=== PATIENT | female | born 1975 | race Caucasian/White ===

== ENCOUNTER → 2016-12-28 | Outpatient (CLI) | payer OTHER ==
--- NOTE | 2016-12-28 10:14 | RAD ---
DATE: 12/28/2016 EXAM: DIGITAL DIAGNOSTIC RT HISTORY: 6 month follow-up for asymmetry COMPARISON: 06/12/2016 This study was interpreted with the benefit of Computerized Aided Detection (CAD). FINDINGS: Breast Density: HETERO The breast parenchyma Is heterogeneously dense, which could reduce sensitivity of mammography. Breast parenchyma level C. There are no dominant suspicious masses, suspicious microcalcifications or evidence of architectural distortion. Benign-appearing calcifications identified in the right breast similar to prior exam. IMPRESSION: Benign findings BI-RADS CATEGORY: 2 BENIGN FINDING RECOMMENDED FOLLOW-UP: 6M 6 MONTH FOLLOW-UP: Patient is due for screening mammogram in 6 months. PQRS compliance statement: Patient information was entered into a reminder system with a target due date 06/29/2017 for the next mammogram. Mammography is a sensitive method for finding small breast cancers, but it does not detect them all and is not a substitute for careful clinical examination. A negative mammogram does not negate a clinically suspicious finding and should not result in delay in biopsying a clinically suspicious abnormality. "Our facility is accredited by the [employer] Mammography [employer]."
== END | disposition home or self-care (01) ==
LOC: MAMMO 09:21
PROVIDERS: ATTEND Obstetrics & Gynecology
DX: R92.8 Other abnormal and inconclusive findings on diagnostic imaging of breast (principal)
CPT/HCPCS: G0206; 77065

== ENCOUNTER → 2017-04-09 | Outpatient (CLI) | payer OTHER ==
[2017-04-09 09:57] LABS: % SAT IRON 3 % (15-34); IRON,SERUM 14 ug/dL (50-170)
[2017-04-09 10:08] LABS: FREE T4 0.97 ng/dL (0.76-1.46)
== END | disposition home or self-care (01) ==
LOC: SPEC 09:15
PROVIDERS: ATTEND Obstetrics & Gynecology
DX: L65.9 Nonscarring hair loss, unspecified (principal)
CPT/HCPCS: 36415; 82728; 83540; 83550; 84439; 84443

== ENCOUNTER → 2017-04-22 | Outpatient (CLI) | payer OTHER ==
[2017-04-23 09:11] LABS: NEG OBC FOB NEG; POS OBC FOB POS
== END | disposition home or self-care (01) ==
LOC: SPEC 08:00
PROVIDERS: ATTEND Obstetrics & Gynecology
DX: Z12.11 Encounter for screening for malignant neoplasm of colon (principal); D50.9 Iron deficiency anemia, unspecified
CPT/HCPCS: 82274

== ENCOUNTER → 2017-05-24 | Outpatient (CLI) | payer OTHER ==
[2017-05-24 10:35] LABS: BASO % 1 % (0-3); EOS % 8 % (0-3); HEMATOCRIT 37.7 % (36.0-47.0); HEMOGLOBIN 12.2 g/dL (12.0-15.5); LYMPH # 1.1 x10^3/uL (1.0-4.8); LYMPH % 22 % (24-48); MEAN CORPUSCULAR HEMOGLOBIN 28 pg (25-35); MEAN CORPUSCULAR HGB CONC 32 g/dL (31-37); MEAN CORPUSCULAR VOLUME 87 fL (79-100); MONO % 8 % (0-9); NEUT % 61 % (31-73); PLATELET COUNT 244 x10^3/uL (140-400); RED BLOOD COUNT 4.34 x10^6/uL (3.50-5.40); RED CELL DISTRIBUTION WIDTH 24.5 % (11.5-14.5)
[2017-05-24 10:54] LABS: % SAT IRON 26 % (15-34); IRON,SERUM 70 ug/dL (50-170)
== END | disposition home or self-care (01) ==
LOC: SPEC 10:22
PROVIDERS: ATTEND Obstetrics & Gynecology
DX: D64.9 Anemia, unspecified (principal)
CPT/HCPCS: 36415; 82728; 83540; 83550; 85025

== ENCOUNTER → 2017-06-24 | Outpatient (CLI) | payer OTHER ==
--- NOTE | 2017-06-24 10:19 | RAD ---
DATE: 06/24/2017 EXAM: DIGITAL SCREEN BILAT W/CAD HISTORY: Routine screening COMPARISON: 12/28/2016, 06/12/2016, 05/28/2016 This study was interpreted with the benefit of Computerized Aided Detection (CAD). The breast parenchyma shows scattered fibroglandular densities. Breast parenchyma level B. FINDINGS: There are scattered fibroglandular densities in the breasts in a slightly asymmetric pattern. There are stable densities in the lateral aspect of the left breast as seen on the cc view and in the anterior superior aspect of the right breast as seen on the oblique view. This probably represents a normal variant in the fibroglandular pattern in this patient. No new or enlarging breast densities are seen. Benign type calcifications are present. No suspicious microcalcifications have developed. IMPRESSION: Stable mammograms without evidence of malignancy. BI-RADS CATEGORY: 2 BENIGN FINDING(S) RECOMMENDED FOLLOW-UP: 12M 12 MONTH FOLLOW-UP PQRS compliance statement: Patient information was entered into a reminder system with a target due date for the next mammogram. Mammography is a sensitive method for finding small breast cancers, but it does not detect them all and is not a substitute for careful clinical examination. A negative mammogram does not negate a clinically suspicious finding and should not result in delay in biopsying a clinically suspicious abnormality. "Our facility is accredited by the [employer] Mammography [employer]."
== END | disposition home or self-care (01) ==
LOC: MAMMO 09:19
PROVIDERS: ATTEND Obstetrics & Gynecology
DX: Z12.31 Encounter for screening mammogram for malignant neoplasm of breast (principal)
CPT/HCPCS: G0202; 77067

== ENCOUNTER → 2017-09-28 | Outpatient (CLI) | payer OTHER ==
[2017-09-28 12:44] LABS: ADD MAN DIFF? NO
[2017-09-28 12:52] LABS: BASO # 0.1 x10^3/uL (0.0-0.2); BASO % 1 % (0-3); EOS # 0.5 x10^3/uL (0.0-0.7); EOS % 9 % (0-3); HEMATOCRIT 39.4 % (36.0-47.0); HEMOGLOBIN 13.3 g/dL (12.0-15.5); LYMPH # 1.3 x10^3/uL (1.0-4.8); LYMPH % 23 % (24-48); MEAN CORPUSCULAR HEMOGLOBIN 31 pg (25-35); MEAN CORPUSCULAR HGB CONC 34 g/dL (31-37); MEAN CORPUSCULAR VOLUME 93 fL (79-100); MONO # 0.5 x10^3/uL (0.0-1.1); MONO % 9 % (0-9); NEUT # 3.3 x10^3uL (1.8-7.7); NEUT % 58 % (31-73); PLATELET COUNT 250 x10^3/uL (140-400); RED BLOOD COUNT 4.22 x10^6/uL (3.50-5.40); RED CELL DISTRIBUTION WIDTH 13.1 % (11.5-14.5); WHITE BLOOD COUNT 5.7 x10^3/uL (4.0-11.0)
[2017-09-28 13:03] LABS: % SAT IRON 23 % (15-34); IRON,SERUM 77 ug/dL (50-170)
[2017-09-28 13:14] LABS: THYROID STIM HORMONE (TSH) 0.959 uIU/mL (0.358-3.74)
[2017-09-28 13:14] LABS: FREE T4 0.82 ng/dL (0.76-1.46)
== END | disposition home or self-care (01) ==
LOC: SPEC 09:30
DX: D50.9 Iron deficiency anemia, unspecified (principal)
CPT/HCPCS: 36415; 83540; 83550; 84439; 84443; 85025

== ENCOUNTER → 2018-07-19 | Outpatient (CLI) | payer OTHER ==
--- NOTE | 2018-07-19 16:28 | RAD ---
DATE: 07/19/2018 EXAM: MAMMO NORA SCREENING BILATERAL HISTORY: Routine screening COMPARISON: 06/24/2017, 05/28/2016 This study was interpreted with the benefit of Computerized Aided Detection (CAD). Breast Density: SCATTERED The breast parenchyma shows scattered fibroglandular densities. Breast parenchyma level B. FINDINGS: 2-D and 3-D tomosynthesis imaging was performed in CC and MLO projections. A small density projected over the superior aspect of the right breast on the oblique view is unchanged since 05/28/2016. No new or enlarging breast densities are seen. Benign type calcifications are present. No suspicious microcalcifications have developed. IMPRESSION: Stable mammograms without evidence of malignancy. BI-RADS CATEGORY: 2 BENIGN FINDING(S) RECOMMENDED FOLLOW-UP: 12M 12 MONTH FOLLOW-UP PQRS compliance statement: Patient information was entered into a reminder system with a target due date for the next mammogram. Mammography is a sensitive method for finding small breast cancers, but it does not detect them all and is not a substitute for careful clinical examination. A negative mammogram does not negate a clinically suspicious finding and should not result in delay in biopsying a clinically suspicious abnormality. "Our facility is accredited by the [employer] Mammography Program."
== END | disposition home or self-care (01) ==
LOC: MAMMO 13:58
PROVIDERS: ATTEND Obstetrics & Gynecology
DX: Z12.31 Encounter for screening mammogram for malignant neoplasm of breast (principal)
CPT/HCPCS: 77063; 77067

== ENCOUNTER → 2019-04-05 | Outpatient (CLI) | payer OTHER | END | disposition home or self-care (01) | LOC: SPEC 09:55 | PROVIDERS: ATTEND Obstetrics & Gynecology | DX: Z01.419 Encounter for gynecological examination (general) (routine) without abnormal findings (principal) | CPT/HCPCS: 87623; 88175 ==

== ENCOUNTER → 2019-09-14 | Outpatient (CLI) | payer OTHER ==
--- NOTE | 2019-09-18 17:55 | RAD ---
BILATERAL SCREENING MAMMOGRAM, 3-D History: Routine screening. Comparison: 05/28/2016, 06/24/2017 and 07/19/2018 mammographic exams. Technique: MLO and CC digital tomosynthesis (3D) images obtained. Radiologist reviewed these images on dedicated workstation. Findings: Breast Tissue Density B : There are scattered areas of fibroglandular density. There are no dominant masses, suspicious microcalcifications, or architectural distortion. Asymmetry involving the right upper breast anteriorly has remained stable. Benign calcifications are present. IMPRESSION: No mammographic evidence of malignancy. Recommend routine screening. BI-RADS category 1: Negative. The images were reviewed with computer-aided detection. Patient information is entered into reminder system with a target due date for the next screening mammogram. Mammography is the most sensitive method for finding small breast cancers, but it does not detect them all and is not a substitute for careful clinical examination. A negative mammogram does not negate a clinically suspicious finding and should not result in delay in biopsying a clinically suspicious abnormality. "Our facility is accredited by the [employer] Mammography [employer]." Electronically signed by: Duarte Chiu MD (09/18/2019 5:52 PM) [facility]
== END | disposition home or self-care (01) ==
LOC: MAMMO 14:07
DX: Z12.31 Encounter for screening mammogram for malignant neoplasm of breast (principal); N64.89 Other specified disorders of breast
CPT/HCPCS: 77063; 77067

== ENCOUNTER → 2020-08-06 | Outpatient (CLI) | payer OTHER ==
[2020-08-06 09:57] LABS: BASO # 0.1 x10^3/uL (0.0-0.2); BASO % 1 % (0-3); EOS # 0.5 x10^3/uL (0.0-0.7); EOS % 9 % (0-3); HEMATOCRIT 34.2 % (36.0-47.0); LYMPH # 1.4 x10^3/uL (1.0-4.8); LYMPH % 25 % (24-48); MEAN CORPUSCULAR HEMOGLOBIN 26 pg (25-35); MEAN CORPUSCULAR HGB CONC 32 g/dL (31-37); MEAN CORPUSCULAR VOLUME 82 fL (79-100); MONO # 0.5 x10^3/uL (0.0-1.1); MONO % 8 % (0-9); NEUT # 3.3 x10^3/uL (1.8-7.7); NEUT % 57 % (31-73); PLATELET COUNT 302 x10^3/uL (140-400); RED BLOOD COUNT 4.16 x10^6/uL (3.50-5.40); RED CELL DISTRIBUTION WIDTH 14.5 % (11.5-14.5); WHITE BLOOD COUNT 5.8 x10^3/uL (4.0-11.0)
[2020-08-06 10:48] LABS: ALBUMIN 3.8 g/dL (3.4-5.0); ALBUMIN/GLOBULIN RATIO 1.1 (1.0-1.7); CALCIUM 9.2 mg/dL (8.5-10.1); CREATININE 0.6 mg/dL (0.6-1.0); GFR 108.1; TOTAL BILIRUBIN 0.7 mg/dL (0.2-1.0); TOTAL PROTEIN 7.3 g/dL (6.4-8.2)
[2020-08-06 10:49] LABS: CHOLESTEROL/HDL RATIO 2.6
== END ==
LOC: SPEC 09:40
PROVIDERS: ATTEND Family Medicine
DX: Z13.220 Encounter for screening for lipoid disorders (principal); D50.9 Iron deficiency anemia, unspecified; R53.83 Other fatigue
CPT/HCPCS: 36415; 80053; 80061; 82306; 83540; 83550; 84443; 85025

== ENCOUNTER → 2020-09-16 | Outpatient (CLI) | payer OTHER ==
--- NOTE | 2020-09-17 15:49 | RAD ---
EXAM: Bilateral digital screening mammogram with tomosynthesis. HISTORY: 45-year-old female presents for screening mammography. TECHNIQUE: Full-field digital craniocaudal and mediolateral oblique 2D and 3D tomosynthesis images of both breasts are obtained for evaluation. Computer aided detection was not applied. COMPARISON: 09/14/2019 and 07/19/2018 BREAST PARENCHYMAL DENSITY: Level B - Scattered fibroglandular densities. FINDINGS: There is no new suspicious mass, microcalcification or region of architectural distortion. There are stable areas of asymmetry and nodularity within both breasts. There are benign calcificatio ns. IMPRESSION: BI-RADS Category 2: Benign finding(s). RECOMMENDATION: Annual mammography is recommended. If your mammogram demonstrates that you have dense breast tissue, which could hide abnormalities, and if you have other risk factors for breast cancer that have been identified, you might benefit from s upplemental screening tests that may be suggested by your ordering physician. Dense breast tissue, i n and of itself, is a relatively common condition. This information is not provided to cause undue c oncern, but rather to raise your awareness and to promote discussion with your physician regarding th e presence of other risk factors, in addition to dense breast tissue. A report of your mammography re sults will be sent to you and your physician. You should contact your physician if you have any ques tions or concerns regarding this report. Mammography is a sensitive method for finding small breast cancers, but it does not detect them all a nd is not a substitute for careful clinical examination. A negative mammogram does not negate a clin ically suspicious finding and should not result in delay in biopsying a clinically suspicious abnorma lity. PQRS compliance statement - Patient information was entered into a reminder system with a target due date for the next mammogram. "Our facility is accredited by the [employer] Mammography [employer]." Electronically signed by: Velvet Donnelly MD (09/17/2020 3:47 PM) [id number]
== END ==
LOC: MAMMO 08:29
PROVIDERS: ATTEND Family Medicine
DX: Z12.31 Encounter for screening mammogram for malignant neoplasm of breast (principal)
CPT/HCPCS: 77063; 77067

== ENCOUNTER → 2021-03-11 | Outpatient (CLI) | payer OTHER | LOC: LAB 14:16 | PROVIDERS: ATTEND Internal Medicine Pulmonary Disease | DX: U07.1 COVID-19 (principal); R68.83 Chills (without fever) | CPT/HCPCS: U0003; U0005 ==

== ENCOUNTER → 2021-03-25 | Outpatient (CLI) | payer OTHER | LOC: SPEC 15:20 | PROVIDERS: ATTEND Nurse Practitioner Family | DX: N89.8 Other specified noninflammatory disorders of vagina (principal) | CPT/HCPCS: 87480; 87510; 87660 ==

== ENCOUNTER → 2021-09-16 | Outpatient (CLI) | payer OTHER ==
--- NOTE | 2021-09-16 11:45 | RAD ---
Bilateral digital screening 2-D and 3-D (digital breast tomosynthesis) mammogram: Reason for examination: Routine screening. Comparison: Mammograms from 09/16/2020, 09/14/2019, 07/19/2018. Interpretation was made with the benefit of CAD. FINDINGS: Breast density: Category B. There are scattered areas of fibroglandular density. There is a 5 mm asymmetry in the inner right breast on the CC images are posterior depth, approximate ly 3:30 position, 3.5 cm from the nipple, near the chest wall. No other suspicious breast mass is see n. No malignant appearing calcifications, or architectural distortion is seen. IMPRESSION: Asymmetry in the inner far posterior right breast. Further evaluation with the diagnostic right mammo gram is recommended. This persists, targeted right breast ultrasound should be performed. Assessment: BI-RADS 0. Incomplete. Additional imaging is recommended. Recommendation: Diagnostic right mammogram. If needed targeted right breast ultrasound. The patient will be contacted with results and asked to schedule for additional imaging. The patient will receive a letter with the results in the mail. Patient information will be entered into the mamm ography reminder system with a target recall date for the next mammogram. A reminder letter will be g enerated. Electronically signed by: Mecca Graff MD (09/16/2021 11:43 AM) [id number]
== END ==
LOC: MAMMO 07:50
PROVIDERS: ATTEND Family Medicine
DX: Z12.31 Encounter for screening mammogram for malignant neoplasm of breast (principal)
CPT/HCPCS: 77063; 77067

== ENCOUNTER → 2021-09-17 | Outpatient (CLI) | payer OTHER ==
--- NOTE | 2021-09-17 14:42 | RAD ---
RIGHT DIAGNOSTIC 2-D AND 3-D MAMMOGRAPHY AND BREAST ULTRASOUND History: Abnormal screening mammogram. Comparison: Bilateral mammogram 09/16/2021 and prior years. Technique: Right true lateral, spot compression CC, XCCM, CC and CC tomosynthesis digital mammogram v iews were obtained. Findings: Breast Tissue Density B : There are scattered areas of fibroglandular density. There are a few benign calcifications. The small asymmetry of the inner posterior right breast is not seen on the XCCM or r epeat CC digital mammogram views. The asymmetry does not completely resolve on the repeat CC tomosynt hesis images. Real-time ultrasound imaging of the right breast is performed. In the right breast at the 1:00 positi on 9 cm from the nipple no solid mass or architectural distortion or abnormal shadowing is identified . There are normal-appearing fibroglandular tissues. The 12:00 and 2:00 positions are also imaged. Th ere are no abnormal axillary lymph nodes. IMPRESSION: Small asymmetry of the inner posterior right breast does not completely resolve with additional mammo gram views. Targeted right breast ultrasound is negative. Recommend six-month follow-up right diagnos tic mammogram. BI-RADS category 3: Probably benign. The images were reviewed with computer-aided detection. Patient information is entered into the reminder system with a target due date for the next screening mammogram. Mammography is the most sensitive method for finding small breast cancers, but it does not detect the m all and is not a substitute for careful clinical examination. A negative mammogram does not negate a clinically suspicious finding and should not result in delay in biopsying a clinically suspicious a bnormality. "Our facility is accredited by the [employer] Mammography [employer]." Electronically signed by: Ariel Kirk MD (09/17/2021 2:40 PM) [email or web address]
== END ==
LOC: MAMMO 13:40
PROVIDERS: ATTEND Family Medicine
DX: R92.1 Mammographic calcification found on diagnostic imaging of breast (principal); R92.2 Inconclusive mammogram
CPT/HCPCS: 76641; 77065; G0279; 77061